=== PATIENT | male | born 1940 | race Caucasian/White ===

== ENCOUNTER 2017-01-16 11:12 | Emergency (ER) | payer OTHER ==
[~2017-01-16] VITALS: Ht 177.8 cm; Wt 77.3 kg
[2017-01-16 11:21] VITALS: Ht 177.8 cm; Wt 77.3 kg
[2017-01-16] MEDS ORDERED: SOD CHLORIDE 0.9% 1,000 ML IV STA (11:22)
[2017-01-16 11:38] LABS: ADD SCAN DIFF NO
[2017-01-16 11:41] LABS: BASOPHILS % 0.2 % (0.0-2.0); EOSINOPHILS # 0.2 10^3/ul (0.0-0.5); EOSINOPHILS % 1.7 % (0.0-7.0); HEMATOCRIT 30.6 % (42.0-52.0); HEMOGLOBIN 9.9 g/dl (14.0-18.0); LYMPHOCYTES # 3.8 10^3/ul (0.8-2.9); LYMPHOCYTES % 37.5 % (15.0-51.0); MEAN CORPUSCULAR HEMOGLOBIN 31.4 pg (29.0-33.0); MEAN CORPUSCULAR HGB CONC 32.4 g/dl (32.0-37.0); MEAN CORPUSCULAR VOLUME 97.1 fl (82.0-101.0); MEAN PLATELET VOLUME 11.4 fl (7.4-10.4); MONOCYTE # 0.6 10^3/ul (0.3-0.9); MONOCYTES % 6.2 % (0.0-11.0); NEUTROPHIL # 5.6 10^3/ul (1.6-7.5); NEUTROPHILS % 54.1 % (39.0-77.0); PLATELET COUNT 133 10^3/UL (140-415); RED BLOOD COUNT 3.15 10^6/ul (4.70-6.10); RED CELL DISTRIBUTION WIDTH 14.6 % (11.5-14.5); WHITE BLOOD COUNT 10.2 10^3/ul (4.8-10.8)
[2017-01-16 11:53] LABS: ALBUMIN 3.4 g/dl (3.3-4.9)
[2017-01-16 11:54] LABS: CHLORIDE 103 mmol/L (97-110); SODIUM 139 mmol/L (135-144)
[2017-01-16 11:56] LABS: ANION GAP 11 (8-16); ASPARTATE AMINO TRANSFERASE 35 IU/L (15-46); CARBON DIOXIDE 29 mmol/L (21-31); CREATININE 1.25 mg/dl (0.61-1.24)
[2017-01-16 11:57] LABS: ALANINE AMINOTRANSFERASE 25 IU/L (13-69); ALBUMIN/GLOBULIN RATIO 1.13; ALKALINE PHOSPHATASE 78 IU/L (42-121); BLOOD UREA NITROGEN 33 mg/dl (7-20); CALCIUM 8.7 mg/dl (8.4-10.2); GLUCOSE 332 mg/dl (70-220); TOTAL PROTEIN 6.4 g/dl (6.1-8.1)
[2017-01-16] MEDS ORDERED: INSU100V3 IJ ×2 (12:04)
[2017-01-16] MEDS ORDERED: NPH,100V SQ ×2 (12:04→12:05)
[2017-01-16 12:09] LABS: TROPONIN-I < 0.012 ng/ml (0.00-0.12)
--- NOTE | 2017-01-16 12:13 | RADRPT ---
PROCEDURE: XR Chest. CLINICAL INDICATION: Chest and abdomen pain. TECHNIQUE: Single frontal view. COMPARISON: None. FINDINGS: There is mild interstitial disease bilaterally consistent with pulmonary edema. The lungs are other frances clear. The heart size is normal. There is no pleural effusion. There is no pneumothorax. IMPRESSION: 1. Mild interstitial disease bilaterally consistent with pulmonary edema. 2. Otherwise normal chest x-ray. RPTAT: QQ .Dakota Shelley MD, MD Date Time Electronically viewed and signed by .Dakota Shelley MD, MD on 01/16/2017 12:13 .R/
[2017-01-16] MEDS ORDERED: DEXTROSE 50% 50 ML SYRINGE IV STA ×2 (12:28→14:24)
[2017-01-16 12:29] LABS: ADD UMIC YES; URINE BILIRUBIN (Dip) NEGATIVE (NEGATIVE); URINE BLOOD (Dip) TRACE (NEGATIVE); URINE COLOR LT. YELLOW (YELLOW); URINE GLUCOSE (Dip) >=1000 % (NEGATIVE); URINE KETONES (Dip) NEGATIVE (NEGATIVE); URINE LEUKOCYTE ESTERASE (Dip) NEGATIVE (NEGATIVE); URINE NITRITE (Dip) NEGATIVE (NEGATIVE); URINE TOTAL PROTEIN (Dip) NEGATIVE (NEGATIVE); URINE UROBILINOGEN (Dip) 0.2 E.U./dL (0.1-1.0)
--- NOTE | 2017-01-16 12:29 | RADRPT ---
PROCEDURE: CT cervical spine. CLINICAL INDICATION: Neck pain/trauma. TECHNIQUE: CT scan examination of the cervical spine was performed on a [address] scanner. Ike nal and sagittal reformatted images were obtained from the axial source images. Images were reviewe d on a high-resolution PACS workstation. Total radiation dose: Total CTDIvol: 22.2 mGy. Total DLP: 489 mGy-cm. One or more of the followin g dose reduction techniques were used: automated exposure control, adjustment of the mA and/or kV ac cording to patient size, or use of iterative reconstruction technique. COMPARISON: None available. FINDINGS: BONY STRUCTURE, BONY ALIGNMENT: There is straightening of the normal cervical lordosis. The bony alignment is anatomic. INDIVISUAL DISK SPACE LEVEL: OCCIPUT/ATLANTO/AXIAL. ARTICULATION: There is fracture of the right-sided pedicle of C1, likely chr onic, with 1.5 mm fracture gap. There is also nondisplaced chronic fracture of the left sided pedic le of C1. C2/3: There is no herniated disk or bulging disk. The disk space is well maintained. No central c anal stenosis or foraminal stenosis. The facet joints are normal. C3/4: There is no herniated disk or bulging disk. The disk space is well maintained. No central c anal stenosis or foraminal stenosis. The facet joints are normal. C4/5: There is no herniated disk or bulging disk. There is degenerative spondylosis with minimal a nterior osteophytes. No central canal stenosis. There is moderate narrowing of the left neural for amen and mild narrowing of the right neural foramen due to hypertrophic uncovertebral joints. The f acet joints are normal. C5/6: There is no herniated disk or bulging disk. There is degenerative spondylosis with minimal a nterior osteophytes. No central canal stenosis. There is moderate narrowing of the right neural fo ramen and mild narrowing of the left neural foramen due to hypertrophic uncovertebral joints. The f acet joints are normal. C6/7: There is no herniated disk or bulging disk. There is degenerative spondylosis with minimal a nterior osteophytes. No central canal stenosis. There is mild narrowing of the neural foramina karina aterally due to hypertrophic uncovertebral joints. The joints are normal. C7/T1: There is no herniated disk or bulging disk. The disk space is well-maintained. No central canal stenosis or foraminal stenosis. The facet joints are normal. IMPRESSION: 1. Fracture of the right-sided pedicle of C1, likely chronic, with 1.5 mm fracture gap. Nondisplac ed chronic fracture of the left sided pedicle of C1. 2. C4/5: Normal narrowing of the left neural foramen and mild narrowing of the right neural forame n due to hypertrophic uncovertebral joints. 3. C5/6: Moderate narrowing of the right neural foramen and mild narrowing of the left neural fora men due to hypertrophic uncovertebral joints. 4. C6/7: Mild narrowing of the neural foramina bilaterally due to hypertrophic uncovertebral joint s. 5. Multilevel mild degenerative spondylosis as described above. 6. Call report was given to the ER physician, Dr. Munoz, 12:22:00 p.m., 01/16/2017. RPTAT: GG .Ricki Almeida MD, MD Date Time Electronically viewed and signed by .Ricki Almeida MD, on 01/16/2017 12:29 .Y/
--- NOTE | 2017-01-16 12:56 | RADRPT ---
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 PROCEDURE: CT Head without contrast. CLINICAL INDICATION: Trauma with altered level of consciousness TECHNIQUE: The study was performed utilizing a GE 64-slice multidetector CT scanner. Direct spiral axial CT images of the brain were obtained from the vertex to the skull base without contrast. Ike nal and sagittal reformatted images are provided. The CTDI vol is 39.25 mGy and the DLP is 634.23 mG y-cm. The images were reviewed on a PACS workstation. COMPARISON: No prior studies are available for comparison. FINDINGS: Mild to moderate diffuse atrophy is seen with a compensatory ventricular enlargement. Mild white ma tter disease in the periventricular and deep white matter is seen. The rodriguez-white matter differenti ation is maintained. No intra or extra-axial fluid collection or mass effect or shift in the midlin e structures is seen. Complete opacification of the visualized right maxillary sinus, right anterio r ethmoid air cells, and near complete opacification of the right frontal sinus is seen. Thickening of the visualized bony garza of the right maxillary sinus is seen. The remaining visualized parana shelly sinuses, mastoid air cells, orbits, and calvarium are unremarkable. Vascular calcifications are seen. IMPRESSION: 1. No acute intracranial pathology. 2. Mild to moderate diffuse volume loss and mild chronic microvascular ischemic changes. 3. Paranasal sinus disease as detailed above suggestive of obstruction of the right ostiomeatal uni t. RPTAT: HPNM Physician Mechelle Date Time Electronically viewed and signed by Physician Mechelle on 01/16/2017 13:31 /
[2017-01-16 13:14] LABS: BACTERIA,URINE RARE; URINE RBCS 0-2 /HPF (0)
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
[2017-01-16] MEDS ORDERED: ATOR20TA38 PO (14:22)
[2017-01-16] MEDS ORDERED: EMTR1TAB16 PO (14:22)
[2017-01-16] MEDS ORDERED: EFV600C PO (14:23)
[2017-01-16 15:18] VITALS: BP 124/55; PULSE 82; RESP 20; TEMP 98.5
== END 2017-01-16 15:27 | disposition short-term general hospital (02) ==
LOC: E/R 11:12
DX: G93.41 Metabolic encephalopathy (principal); E11.649 Type 2 diabetes mellitus with hypoglycemia without coma; E86.0 Dehydration; Z79.4 Long term (current) use of insulin
CPT/HCPCS: 36415; 70450; 71010; 72125; 80053; 81001; 82962; 83690; 84484; 85025; 93005; 96374; 96376; 99285; J7030; 81003